=== PATIENT | male | born 1965 | race Caucasian/White ===

== ENCOUNTER → 2021-11-24 | Outpatient (CLI) | payer BC ==
[2021-11-24 09:01] LABS: African American GFR (CKD) >90 (>60 ml/min/1.73 sqM); Blood Urea Nitrogen 17 mg/dL (9-20); Non-African American GFR(CKD) >90 (>60 ml/min/1.73 sqM)
--- NOTE | 2021-11-24 10:18 | CT ---
EXAMINATION TYPE: CT urogram wo/w con CT DLP: 1333.8 mGycm, Automated exposure control for dose reduction was used. DATE OF EXAM: 11/24/2021 9:43 AM COMPARISON: None CLINICAL INDICATION:Male, 56 years old with history of R31.0 gross hematuria TECHNIQUE: Urogram was performed before and after the uneventful administration of 100 cc of Isovue-370 intraven ously. Coronal and sagittal reformats were performed. One or more CT dose reduction strategies were u tilized during this examination. 2D and 3D reconstructions are performed to assist visualization of t he urinary tract on a separate workstation. FINDINGS: GENITOURINARY: RIGHT KIDNEY AND URETER: No calculi. No hydronephrosis or hydroureter. No renal mass or other lesions . No urothelial lesions: no filling defect, dilation, stricture or wall thickening. LEFT KIDNEY AND URETER: No calculi. No hydronephrosis or hydroureter. No renal mass or other lesions. No urothelial lesions: no filling defect, dilation, stricture or wall thickening. URINARY BLADDER: Normal, no calculi, mass or other lesions. REPRODUCTIVE: Enlarged prostate measuring 5.3 cm with coarse calcifications. This indents upon the ur inary bladder base. Seminal vesicles are symmetric. ABDOMEN LIVER: Scattered subcentimeter hypodensity foci which are too small to characterize but likely repres ent cysts.. GALLBLADDER AND BILE DUCTS: Unremarkable PANCREAS: Unremarkable. SPLEEN: Unremarkable. ADRENAL GLANDS: Unremarkable. STOMACH AND BOWEL: Scattered colonic diverticulosis without evidence for acute diverticulitis. The ap pendix is within normal limits. No evidence of bowel obstruction. PERITONEUM: No evidence of pneumoperitoneum, free fluid, or adenopathy. VASCULATURE: Mild atherosclerotic calcification of the aorta and its branches. No abdominal aortic an eurysm. MUSCULOSKELETAL: No acute osseous abnormalities. Degenerative changes of the lumbar spine most pronou nced over the lower lumbar spine. No aggressive osseous lesions. SOFT TISSUE/ABDOMINAL WALL: Small to moderate sized fat filled umbilical hernia. Bilateral small fat filled inguinal hernias. LOWER CHEST: No significant findings. IMPRESSION: 1. No evidence of urolithiasis or renal/urothelial neoplasm. 2. Prostatomegaly.
== END | disposition home or self-care (01) ==
LOC: RADCTMAIN 08:22
PROVIDERS: ATTEND Urology
DX: N40.0 Benign prostatic hyperplasia without lower urinary tract symptoms (principal)
CPT/HCPCS: 82565; 84520; 74178; 36415; 74400; Q9967